=== PATIENT | male | born 1985 | race Caucasian/White ===

== ENCOUNTER 2018-07-01 09:14 | Emergency (ER) | payer OTHER, SELFPAY ==
[2018-07-01 09:15] VITALS: BP 145/89; PULSE 98; RESP 18; TEMP 36.6; O2SAT 99; BMI 23.7
--- NOTE | 2018-07-01 09:55 | ED.VISSUMM ---
- ER Visit Summary Date of Service: 07/01/18 Chief Complaint: Back pain History of Present Illness: The patient is a 33 M with back pain for the past 4 days. Patient initially fell 6 days ago, but denied any significant pain following this. He had some mild right neck stiffness. He went to work 4 days ago and twisted slightly at work and had sudden increased pain in the lower back. Pain does not radiate down his legs. Has been taking Aleve and using icy hot. Physical Examination: Vital signs unremarkable. Patient standing at bedside. He is no acute distress. Head neck examination unremarkable. Heart is regular rate and rhythm. Lungs sounds clear. Abdomen is soft and nontender. Back examination reveals tenderness in the paraspinal and spinal region in the low lumbar area. No ecchymosis or lesions. He has palpable muscle spasm. Lower extremity examination reveals good strength and sensation. He can stand on heels and tiptoes. Test Results: [] Emergency Department Course and Treatment: I discussed with patient that his symptoms are muscular in nature. He will be given a shot of Toradol and p.o. Flexeril. He will be given prescriptions for naproxen and Flexeril. Treatment Plan: [] Disposition: Discharge Impression: Lumbar paraspinal strain/spasm This note was generated with [employer] dictation software. It may contain incorrect words, spelling, and punctuation that were not noted in review of the chart prior to signing ED Disposition - Plan for ED Patient: Referrals: Care Physician,No Primary [Primary Care Provider] -
--- NOTE | 2018-07-01 09:56 | ED.DEP ---
ED Disposition - Plan for ED Patient: Disposition: Home or Assisted Living Instructions: ED Sprain Strain Lumbar, ED Spasm Back No Trauma Prescriptions: Naproxen [Naprosyn] 500 mg PO BID PRN PRN #20 tablet PRN Reason: Pain Cyclobenzaprine [Flexeril] 10 mg PO TID PRN #20 tablet PRN Reason: Muscle Spasm Referrals: Carolyn Conley MD [STAFF PHYSICIAN] - As Needed
[2018-07-01] MEDS: Ketorolac 60 MG/2 ML Vial IM (10:55)
== END 2018-07-01 11:03 | disposition home or self-care (01) ==
PROVIDERS: Emergency Provider Emergency Medicine
DX: S39.012A Strain of muscle, fascia and tendon of lower back, initial encounter (principal); X50.1XXA Overexertion from prolonged static or awkward postures, initial encounter; Y93.9 Activity, unspecified; Y92.9 Unspecified place or not applicable; Y99.0 Civilian activity done for income or pay; M62.830 Muscle spasm of back; Z72.0 Tobacco use
CPT/HCPCS: 96372; 99283

== ENCOUNTER 2020-01-28 10:30 | Emergency (ER) | payer MEDICAID, SELFPAY ==
[2020-01-28 10:32] VITALS: BP 175/98; PULSE 92; RESP 15; TEMP 36.3; O2SAT 98; BMI 26.4
[2020-01-28 10:35] VITALS: BP 175/98; PULSE 83; RESP 17
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
[2020-01-28] MEDS: Acetaminophen 500 MG Tablet 1000 MG PO (11:03)
--- NOTE | 2020-01-28 11:12 | ED.RN ---
pt refuses to have x-ray completed. dr garcia. pt to be discharged after registration.
== END 2020-01-28 11:22 | disposition home or self-care (01) ==
LOC: ED 11:21
PROVIDERS: Emergency Provider Emergency Medicine; PCP Family Medicine
DX: S01.21XA Laceration without foreign body of nose, initial encounter (principal); F17.200 Nicotine dependence, unspecified, uncomplicated; Y09 Assault by unspecified means
CPT/HCPCS: 99283

== ENCOUNTER 2024-04-01 08:24 | Emergency (ER) | payer MEDICAID, SELFPAY ==
[2024-04-01 08:25] VITALS: BP 148/114; PULSE 95; RESP 19; TEMP 36.3; O2SAT 98; BMI 28.2
--- NOTE | 2024-04-01 08:43 | EKG12_ITS ---
Test Reason : PAIN Blood Pressure : */* mmHG Vent. Rate : 81 BPM Atrial Rate : 81 BPM P-R Int : 156 ms QRS Dur : 102 ms QT Int : 364 ms P-R-T Axes : 50 23 52 degrees QTcB Int : 422 ms Normal sinus rhythm Normal ECG Confirmed by Fran Fournier ([id number]), food editor MICHI PULLIAM ([id number]) on 04/02/2024 11:39:06 AM Referred By: Confirmed By: rFan Fournier
--- NOTE | 2024-04-01 08:43 | RAD_ITS ---
STUDY: X-RAY - UNILATERAL RIBS ( LEFT ) WITH CHEST REASON FOR EXAM: Male, 38 years old. Chest wall pain TECHNIQUE - RIBS: 4 view(s) of the ribs. TECHNIQUE - CHEST: Single PA view of the chest. COMPARISON: Comparison is made with prior chest radiograph dated September 17, 2014. FINDINGS - RIBS: Normal visualized ribs without a demonstrated fracture. FINDINGS - CHEST: The lungs are clear and expanded. There is no demonstrated pleural abnormality. Normal size heart. Normal mediastinum and breana. Normal visualized pulmonary arteries. Normal visualized aortic arch and descending thoracic aorta. Normal visualized thoracic spine. Normal visualized ribs, clavicles, and shoulders. There is no demonstrated abnormality of the visualized soft tissue structures of the upper abdomen. RAD/Ribs Uni Min 3V w/PA Chest IMPRESSION: RIBS: Normal x-ray examination of the ribs. CHEST: Normal x-ray examination of the chest. Electronically Signed: Fei Finley MD at 9:16 EST ,
--- NOTE | 2024-04-01 08:44 | EX.ED.DYSGE1 ---
HPI History of Present Illness Chief Complaint: Chest Other Narrative Narrative: 38-year-old male past medical history of elevated blood pressure, presents with left-sided thoracic back pain that has had for 3 to 4 weeks. He relate history that he may have strained his back muscles, pain is worse when he moves his arm or certain positions of his torso. He saw his primary care provider at the [facility] and was given Flexeril along with blood pressure medications because he had elevated blood pressure at that time, possibly secondary to pain. He states that he noticed improvement over the last 2 weeks but approximately 1 week ago, he was coughing, and moving and developed back pain on the left side that radiated towards the front. It is worsened by movement of his left arm and movement of his torso. He denies any fevers or chills, no nausea or vomiting, no diaphoresis. He does have an allergy to cats so he has been coughing occasionally brought up phlegm. His main concern is that he thinks he may have broken a rib. No leg swelling, no other symptoms. Pain mainly between his thoracic spine and shoulder blade, and perhaps a little bit lower as well. PFSH [facility] Home Medications ?Medication ?Instructions ?Recorded ?Last Taken ?Type cyclobenzaprine 10 mg tablet 10 mg PO TID PRN Muscle Spasm #20 04/01/24 Unknown Rx TABLETS Allergy/AdvReac Type Severity Reaction Status Date / Time red dye AdvReac Itching Verified 04/01/24 08:26 Social History Smoking Status: Current every day smoker tobacco type: cigarettes ROS ROS ED ROS Narrative Constitutional: No fever, no chills. No diaphoresis. HEENT: No sore throat. No neck pain. No loss of vision. No rhinorrhea. Cardiovascular: Left-sided thoracic back pain, left. Chest pain. No palpitations. No pedal edema. Respiratory: Occasional cough, no shortness of breath. Abdominal: No abdominal pain. No nausea. No vomiting. Genitourinary: No dysuria. No hematuria. Musculoskeletal: No myalgias. No arthralgias. Neurologic: No headaches. No dizziness. No lightheadedness. Skin: No rash. No change in color. EXAM Physical Exam Narrative Exam Narrative: Afebrile. Vital signs noted. Nontoxic-appearing. Cardiovascular examination reveals a regular rate and rhythm. Lungs are clear to auscultation bilaterally. Abdomen is soft nontender with normal active bowel sounds. Neurological examination is nonfocal and nonlateralizing. Able to raise arms above head. Limited range of motion of left arm secondary to musculoskeletal pain. Mild tenderness to palpation left rhomboid area and intercostals. No vertebral point tenderness or bony step-off of the thoracic spine. Const Vital Signs: 04/01/24 08:25 Temperature 97.3 F L Temperature Source Temporal Pulse Rate 95 Respiratory Rate 19 H Blood Pressure 148/114 H Blood Pressure Mean 125 Pulse Ox 98 Oxygen Delivery Method Room Air MDM MDM MDM Narrative Medical decision making narrative: Differential diagnosis includes but not limited to rhomboid strain/intercostal pain versus pneumonia versus pneumothorax versus rib fracture. I have very low suspicion for ACS. I do not feel he requires laboratory work but EKG will be obtained as well as left rib x-rays to rule out a rib fracture. I doubt pneumothorax because history and physical does not support this and his pulse ox is 98% on room air without evidence of hypoxia. While he does have elevated blood pressure, especially diastolic, he states he was already started on medications by his primary care provider. EKG was obtained and interpreted by myself independently as normal sinus rhythm at 81 bpm without ectopy or acute ST changes. No STEMI. Additionally, on my independent interpretation of his left-sided rib x-rays with chest x-ray, I see no evidence of pneumothorax, pneumonia, or rib fracture. I reviewed the radiology report which confirms my independent interpretation. At this point in time, I feel he can be discharged to follow-up with his primary care provider. I wrote him additional Flexeril, and he states he takes [id number] medications such as anti-inflammatories before and after work. I find that this should be adequate and analgesia. I feel he can be discharged and that he does not require observation or admission at this time. Return instructions to the emergency department were reviewed. Disposition is discharged home in stable condition. History & Record Review Discussion w/independent historian: Patient Additional record(s) reviewed:: Prior ED visit (Noncontributory to current chief complaint.) Radiography X-Ray: Read by ED Physician and Read by Radiologist Diagnostic Testing: Clinical Impression(s) from Imaging Studies Ribs w/Chest X-Ray 04/01/24 08:43 IMPRESSION: RIBS: Normal x-ray examination of the ribs. CHEST: Normal x-ray examination of the chest. Electronically Signed: Fei Finley MD at 9:16 EST , Discharge Plan Triage Chief Complaint: Chest Other ED Provider: Sergey Wolf Dx/Rx/DC Orders Clinical Impression: Left-sided thoracic back pain, Strain of left rhomboid muscle, Intercostal muscle pain Instructions: ED Chest Pain, Noncardiac, ED Back Sprain/Strain, ED Chest Wall Strain Prescriptions: New cyclobenzaprine 10 mg tablet 10 mg PO TID PRN (Reason: Muscle Spasm) Qty: 20 0RF Primary Care Provider: Care Physician,No Primary Referrals: Lilliana Orellana, [Non-Staff] - 1 Week if not improving Activity Restrictions/Additional Instructions: Return with fever, increased pain, new or worsening symptoms. Continue your [id number] medications, with addition of cyclobenzaprine as needed. Print Language: Kazakh Disposition Disposition: Home, Self Care
[2024-04-01 09:40] VITALS: BP 155/106; PULSE 73; RESP 16; TEMP 36.4; O2SAT 97
== END 2024-04-01 09:41 | disposition home or self-care (01) ==
PROVIDERS: Emergency Provider Emergency Medicine; Visit Provider Emergency Medicine
DX: M54.6 Pain in thoracic spine (principal); S46.912A Strain of unspecified muscle, fascia and tendon at shoulder and upper arm level, left arm, initial encounter; R07.82 Intercostal pain; F17.210 Nicotine dependence, cigarettes, uncomplicated; X58.XXXA Exposure to other specified factors, initial encounter
CPT/HCPCS: 71101; 93005; 99282

== ENCOUNTER 2024-06-18 17:05 | Emergency (ER) | payer OTHER, MEDICAID, SELFPAY ==
[2024-06-18 17:05] VITALS: BP 153/105; PULSE 87; RESP 20; TEMP 36.9; O2SAT 100; BMI 28.5
--- NOTE | 2024-06-18 17:18 | RAD_ITS ---
STUDY: X-RAY CHEST REASON FOR EXAM: Male, 39 years old. FALL TECHNIQUE: AP portable COMPARISON: None. FINDINGS: The lungs are clear and expanded. There is no demonstrated pleural abnormality. Normal size heart. Normal mediastinum and breana. Normal visualized pulmonary arteries. Normal visualized aortic arch and descending thoracic aorta. Normal visualized thoracic spine. Normal visualized, clavicles, and shoulders. There are acute displaced fractures of the posterior seventh and eighth ribs There is no demonstrated abnormality of the visualized soft tissue structures of the upper abdomen. RAD/Chest 1 View IMPRESSION: Acute displaced fracture of the posterior left seventh and eighth ribs Otherwise no acute cardiopulmonary pathology Electronically Signed: Ozzy Parra MD at 17:46 EST ,
--- NOTE | 2024-06-18 18:38 | ED.RN ---
PT C/O SOB WITH SHOOTING PAINS. STATES SOMETIMES IT JUST TAKES MY BREATH AWAY
--- NOTE | 2024-06-18 19:14 | CT_ITS ---
INDICATION: left sided pain. Rib fractures # 7-8 ?? more EXAMINATION: CT CHEST WITHOUT CONTRAST - CT Chest W/O Contrast Injection TECHNIQUE: Helically acquired images were obtained of the chest. A radiation dose optimization technique was used for this scan. IV Contrast dosage and agent: None. COMPARISON: None. FINDINGS: LUNGS, PLEURA AND LARGE AIRWAYS: No masses, consolidation, or edema. There is a tiny left pleural effusion. No pneumothorax. THYROID: No thyroid lesions. HEART AND PERICARDIUM: Heart size is normal. No pericardial effusion. CORONARY ARTERIES: Coronary artery calcification VESSELS: Thoracic aorta is not dilated. MEDIASTINUM AND MALATHI: No mediastinal or hilar adenopathy. Esophagus is unremarkable. No hiatal hernia. UPPER ABDOMEN: No acute pathology. BONES: Dorsal spine demonstrates degenerative changes No suspicious lytic or blastic abnormality. There are recent mildly displaced fractures of the posterior lateral aspect of the left eighth rib posterior aspect of the ninth rib and posterior 10th rib with early callus deposition CT/Chest without Contrast IMPRESSION: Early healing fractures of the left eighth ninth and 10th ribs with tiny left pleural effusion. No evidence pneumothorax Electronically Signed: Ozzy Parra MD at 19:52 EST Reading Location ID and State: [address] [place] [address] Tel , Service support ,
--- NOTE | 2024-06-18 19:17 | ED.VIS.FALL ---
HPI HPI - Fall History of Present Illness Chief Complaint: Fall Detail of Chief Complaint: Injuring his left lateral and posterior rib cage. Informant: patient Occured/Mechanism Occurred: Weeks Mechanism/Context: Yes same level fall and Yes slip Usually ambulates: Without assistance Pain/Injury Pain Location: chest Quality of Pain: Sharp Current Severity: Moderate Maximum Severity: Moderate Associated Symptoms Associated Symptoms: Negative for Parasthesias, Weakness, Loss of function, Inability to ambulate, Loss of consciousness or Amnesia Narrative Narrative: 39-year-old male who said he slipped and fell in the [email or web address] and when these restaurants recently. On 111 he started having significant left lateral chest wall and posterior rib cage pain. Denies hitting his head. No LOC. He believes he has had rib fractures in the past. He denies any shortness of breath. Denies any hemoptysis. Denies any other injuries. Prior similar symptoms: No Recent Illness/Hospitalization: No PFSH PFSH Medical History Hypertension Bronchitis Home Medications ?Medication ?Instructions ?Recorded ?Last Taken ?Type hydrochlorothiazide 12.5 mg capsule 12.5 mg PO DAILY 06/18/24 Unknown History hydrocodone-acetaminophen 5-325mg 1 tab PO Q4H PRN PRN Pain 3 days 06/18/24 Unknown Rx 5mg-325mg #10 TABLETS Allergy/AdvReac Type Severity Reaction Status Date / Time red dye AdvReac Itching Verified 04/01/24 08:26 Social History Smoking Status: Current every day smoker tobacco type: cigarettes ROS ROS ED ROS Narrative Denies recent illness. Chest pain left lateral ribs worse with breathing or movement. Constitutional Constitutional ED: Denies chills or fever(s) Eyes Eyes: Denies blurry vision ENT ENT ED: Denies ear pain Cardiovascular Cardiovascular: Reports chest pain Respiratory/Chest Respiratory/Chest: Denies cough or dyspnea Gastrointestinal Gastrointestinal: Denies abdominal pain Genitourinary Genitourinary ED: Denies dysuria Musculoskeletal Musculoskeletal: Denies arthralgias Integumentary Denies abscess Neurologic Neurologic: Denies headache(s) Psychiatric Psychiatric: Denies anxiety or depression Endocrine Endocrinology: Denies polydipsia Hematologic/Lymphatic Hematologic/Lymphatic: Denies easy bleeding Allergic/Immunologic Allergic/Immunologic ED: Denies mouth swelling EXAM Physical Exam Narrative Exam Narrative: 39-year-old male vital signs are stable afebrile. Pulse ox 100% on room air no signs hypoxia. No distress. Obvious pain to his rib cage when he moves or takes a deep breath. H EENT exam pupils round react light. No signs of trauma to his face or scalp. Nontender. No hematoma. Moist mucous membranes. Neck nontender. Back his cervical, thoracic and lumbar spine are nontender. His left upper rib cage is tender. There is no ecchymosis or bruising. Left lateral rib cage is tender. Again no ecchymosis or bruising. No subcu air or crepitance. Sternum and right chest are nontender. Lungs clear to auscultation bilaterally. He has more pain with deep breathing. Heart regular rhythm rate about 87 no murmur. Abdomen soft nontender. No bruising. No peritoneal signs. Pelvic girdle intact. Moving all 4 extremities. Nontender no edema. 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 Dorsi plantarflexion intact. Calves are nontender without edema. Neurologically is awake and alert. No focal motor deficits. Awake and alert. Answering questions. GCS 15. Const Vital Signs: 06/18/24 17:05 06/18/24 18:35 06/18/24 19:30 Temperature 98.4 F Temperature Source Temporal Pulse Rate 87 75 Respiratory Rate 20 H 18 Respiratory Effort Short of Breath Respiratory Depth Normal Respiratory Pattern Normal Blood Pressure 153/105 H 157/112 H Blood Pressure Mean 121 127 Pulse Ox 100 98 Oxygen Delivery Method Room Air Room Air Room Air Positive well nourished and well developed; Negative for obese, cachectic, contractures or unkempt General Appearance ED: well developed and NAD; Negative for unkempt, cachectic or contractures Nutritional Appearance: Negative for cachectic or obese HEENT Reports normocephalic and TM's normal bilaterally atraumatic; Negative for trauma, contusion, hematoma or tenderness Eyes PERRL and EOMs intact bilaterally General Eye ED: Negative for pale conjunctiva or scleral icterus Neck no lymphadenopathy and supple General: Negative for tenderness Chest Wall inspection of chest normal; Negative for palpation of chest normal Chest Narrative: Tenderness left lateral and left upper posterior rib cage. No bruising. No crepitance. No subcu air. Resp normal respiratory effort, no retractions and clear to auscultation bilaterally Effort and Inspection: pain with movement Auscultation: Negative for rales or rhonchi Cardio regular rate, regular rhythm, S1 normal heart sound, S2 normal heart sound and no murmurs GI non-tender, non-distended and no masses Palpation: soft; Negative for guarding or rebound tenderness present Back/Spine no CVA tenderness General Back: Negative for CVA tenderness Cervical Spine: Negative for cervical spine tenderness Lumbar Spine / Lower Back: Negative for lumbar spinal tenderness Neuro oriented x3, CN's II-XII intact bilaterally, moves all extremities and no focal motor deficits Maggie Coma Scale: document GCS findings Spontaneous Obeys Commands Oriented 15 Sensorium / Orientation: alert, oriented to person, oriented to place and oriented to time Motor Exam: strength 5/5 throughout Psych mental status grossly normal and thought process normal Appearance: Negative for unkempt Attitude: No agitated Mood & Affect: Negative for depressed, anxious or tearful Skin Lesions: no lesions Rashes: no rashes Trauma: Negative for abrasion or laceration MDM MDM MDM Narrative Medical decision making narrative: 39-year-old male left lateral rib cage and left upper posterior rib cage pain after 2 recent falls. History of prior rib fracture. Plain x-ray shows at least 2 rib fractures #7 and 8. Obtain a CAT scan to rule out additional rib fractures due to the locations of his pain. He is stable he is not hypoxic. He will be given an IM injection of morphine. Zofran to prevent nausea. Repeat exam patient is resting more comfortably after his pain medication. The CAT scan is read as ribs #8, 9 and possibly 10. The x-ray was read as the seventh and eighth rib, but it is actually the eighth and ninth rib on the chest x-ray. Either way he has 3 rib fractures on the left that appear to be old and have been healing but he may have reinjured them. There is no pneumothorax. He and I discussed he is comfortable using Tylenol Motrin for pain. [place] for more severe pain. He really wanted an excuse for work and light duty. History & Record Review Discussion w/independent historian: Patient Radiography Chest X-Ray - ED: 1 View, Read by ED Physician, Read by Radiologist, Normal, Heart, Lungs, Mediastinum, Chronic Changes and Left Rib Fx (Left eighth and ninth rib appear to be fractured. Also the 10th.) Diagnostic Testing: Clinical Impression(s) from Imaging Studies Chest X-Ray 06/18/24 17:18 IMPRESSION: Acute displaced fracture of the posterior left seventh and eighth ribs Otherwise no acute cardiopulmonary pathology Electronically Signed: Ozzy Parra MD at 17:46 EST Reading Location ID and State: [facility] / [place] Tel [phone], Service support , Chest CT 06/18/24 19:14 IMPRESSION: Early healing fractures of the left eighth ninth and 10th ribs with tiny left pleural effusion. No evidence pneumothorax Electronically Signed: Ozzy Parra MD at 19:52 EST Reading Location ID and State: [address] [place] [address] Tel [phone], Service support , Chest x-ray, will single view, portable ordered by nursing shows a fracture of the eighth, ninth and 10th ribs. No pneumothorax. No hemothorax. Normal cardiac silhouette. Interpreted both by myself and the radiologist. Discharge Plan Triage Chief Complaint: Fall ED Provider: King Hyatt Dx/Rx/DC Orders Clinical Impression: Fall, Left rib fracture Instructions: ED Rib Fracture Prescriptions: New hydrocodone-acetaminophen 5-325 mg tablet 1 tab PO Q4H PRN PRN (Reason: Pain) 3 Days Qty: 10 0RF No Action hydrochlorothiazide 12.5 mg capsule 12.5 mg PO DAILY Primary Care Provider: Care Physician,No Primary Referrals: Juan Carlos Zambrano MD [Med Staff - [facility]] - As Needed Care Physician,No Primary [Primary Care Provider] - Activity Restrictions/Additional Instructions: Ice and a pillow to support your left rib cage to help with the pain. Primarily Motrin and Tylenol for pain you can alternate those. Limited [place] for pain. Off the next 2 days. Light duty for the next week no lifting more than 10 pounds. Follow-up with a local primary care physician not improving or return if worse. Ribs take weeks to heal. You have 3 broken ribs on the left number is 8, 9 and 10. It looks like they previously were broken and are slowly healing. Most likely when you fell you reinjured them. Print Language: Afghan Disposition Disposition: Home, Self Care
[2024-06-18] MEDS: morphine 10 MG/ML Syringe IM (19:26)
[2024-06-18] MEDS: Ondansetron ODT 4 MG Tablet PO (19:26)
[2024-06-18 19:30] VITALS: BP 157/112; PULSE 75; RESP 18; O2SAT 98
--- NOTE | 2024-06-18 20:18 | CM.ED ---
Social Work Reason for visit: No PCP SW introduced self to patient, explained role in the hospital and reason for visit. Patient verified that he does not have a PCP, stating he has been wanting to get established but has been working a lot of hours. [facility] provider list given. Patient accepting of same. No further needs identified. Mabel Moore, DIRECTOR OF CASEWORK, INFORMATION SECURITY DIRECTOR
[2024-06-18 22:17] VITALS: BP 141/97; PULSE 65; RESP 15; TEMP 36.6; O2SAT 99
--- NOTE | 2024-06-18 22:29 | ED.RN ---
PT STATES HE DOES NOT HAVE A RIDE HOME. PT STATES HE PLANS ON WALKING HOME.
== END 2024-06-18 22:30 | disposition home or self-care (01) ==
PROVIDERS: Emergency Provider Emergency Medicine; Visit Provider Emergency Medicine
DX: S22.42XA Multiple fractures of ribs, left side, initial encounter for closed fracture (principal); F17.210 Nicotine dependence, cigarettes, uncomplicated; W19.XXXA Unspecified fall, initial encounter
CPT/HCPCS: 71045; 71250; 96372; 99282

== ENCOUNTER 2025-02-25 09:56 | Emergency (ER) | payer MEDICAID, SELFPAY ==
[2025-02-25 09:57] VITALS: BP 155/116; PULSE 78; RESP 16; TEMP 36.6; O2SAT 98; BMI 29.4
--- NOTE | 2025-02-25 10:54 | EX.ED.VIS.UR ---
HPI HPI - URI History of Present Illness Chief Complaint: Ear Problem Informant: patient Onset/Context/Timing Onset: Days (2) Context: Sudden Onset Timing: Continuous Quality: Pressure Location: Left ear Worsened by: - (Coughing) Relieved by: - (Nothing) Associated Symptoms Associated Symptoms: Negative for Nasal Congestion, Headache, Sinus Pressure, Myalgias, Nausea, Vomiting, Diarrhea, Shortness of Breath, Chest Pain, Nonproductive cough, Hemoptysis or Productive Cough Narrative Narrative: Patient presents with left ear pain that has been getting worse over the past 2 days. Patient states he tried to clean his ear with a Q-tip and his pain became severe at that time. Patient states it has been constant over the past 2 days. Patient states he does feel dizzy at times. Patient states his pain is worse with coughing. Patient denies any chest pain or shortness of breath. Patient denies any nausea or vomiting. Patient admits to some subjective fevers. ROS ROS ED Constitutional Constitutional ED: Reports fever(s) and subjective; Denies chills Eyes Eyes: Reports change in vision; Denies blurry vision ENT ENT ED: Reports ear pain left; Denies rhinorrhea or sore throat Cardiovascular Cardiovascular: Denies chest pain or palpitations Respiratory/Chest Respiratory/Chest: Reports cough; Denies dyspnea Gastrointestinal Gastrointestinal: Denies nausea or vomiting Genitourinary Genitourinary ED: Denies dysuria or hematuria Musculoskeletal Musculoskeletal: Reports back pain; Denies neck pain Integumentary Denies abscess or rash Neurologic Neurologic: Reports headache(s); Denies weakness Allergic/Immunologic Allergic/Immunologic ED: Denies mouth swelling or urticaria [facility] Medical History (Updated 02/25/25 @ 12:[address] Kartik Dexter, DO) ADHD Hypertension Bronchitis Home Medications ?Medication ?Instructions ?Recorded ?Last Taken ?Type hydrochlorothiazide 12.5 mg capsule 12.5 mg PO DAILY 06/18/24 Unknown History hydrocodone-acetaminophen 5-325mg 1 tab PO Q4H PRN PRN Pain 3 days 06/18/24 Unknown Rx 5mg-325mg #10 TABLETS penicillin V potassium 500 mg 500 mg PO 4X/DAY #40 tabs 02/25/25 Unknown Rx tablet Allergy/AdvReac Type Severity Reaction Status Date / Time red dye AdvReac Itching Verified 02/25/25 09:57 Surgical History (Updated 02/25/25 @ 12:[address] Kartik Dexter DO) Hx of appendectomy H/O right wrist surgery Social History Smoking Status: Current every day smoker tobacco type: cigarettes EXAM Physical Exam Const Vital Signs: 02/25/25 09:57 Temperature 97.9 F Temperature Source Temporal Pulse Rate 78 Respiratory Rate 16 Blood Pressure 155/116 H Blood Pressure Mean 129 Pulse Ox 98 Positive well nourished and well developed General Appearance ED: well developed and NAD HEENT Reports moist mucous membranes HEENT Narrative: The left external auditory canal was occluded with cerumen. The right external auditory canal had some cerumen in it however, the tympanic membrane was visualized and was within normal limits. normocephalic and atraumatic Throat: posterior oropharynx normal Neck supple, no meningeal signs and no JVD Extremity normal to inspection and full ROM Neuro oriented x3, CN's II-XII intact bilaterally and no sensory deficits noted Sensorium / Orientation: alert Motor Exam: strength 5/5 throughout Psych mental status grossly normal MDM MDM MDM Narrative Medical decision making narrative: Debrox eardrops were applied to the left external auditory canal. The left external auditory canal was irrigated. There is minimal improvement after initial irrigation. Treatment and Re-Evaluation Narrative: On reevaluation, there is still some cerumen in the left external auditory canal. However, the left tympanic membrane was able to be visualized. There is some erythema of the left tympanic membrane. Patient was given a dose of Pen-Vee K here. Patient was given a prescription for Pen-Vee K. Patient was instructed to follow-up with his primary care physician in 5 to 7 days. Patient was instructed return if worse in any way. Patient understood and was agreeable with the plan. All questions were answered. Discharge Plan Triage Chief Complaint: Ear Problem ED Provider: Kartik Dexter Dx/Rx/DC Orders Clinical Impression: Impacted cerumen of left ear, Acute otitis media, left Instructions: ED Cerumen Impaction Treated, ED Earwax Removal Prescriptions: New penicillin V potassium 500 mg tablet 500 mg PO 4X/DAY Qty: 40 0RF No Action hydrochlorothiazide 12.5 mg capsule 12.5 mg PO DAILY hydrocodone-acetaminophen 5-325 mg tablet 1 tab PO Q4H PRN PRN (Reason: Pain) 3 Days Qty: 10 0RF Primary Care Provider: Care Physician,No Primary Referrals: Care Physician,No Primary [Primary Care Provider, Medical] Chantel Bermudez, COMMISS[employer] OF [employer]-[facility] - 5-7 Days Print Language: Luxem[place]ish Disposition Disposition: Home, Self Care
[2025-02-25 12:39] VITALS: BP 118/72; PULSE 70; RESP 14; TEMP 36.6; O2SAT 99
== END 2025-02-25 12:40 | disposition home or self-care (01) ==
PROVIDERS: Emergency Provider Emergency Medicine; Visit Provider Emergency Medicine
DX: H61.22 Impacted cerumen, left ear (principal); H66.92 Otitis media, unspecified, left ear; F17.210 Nicotine dependence, cigarettes, uncomplicated
CPT/HCPCS: 99283